=== PATIENT | female | born 1960 | race Caucasian/White ===

== ENCOUNTER 2023-06-09 07:36 | Outpatient (RCR) | payer BC, SELFPAY ==
[2023-05-26 08:00] VITALS: BP 106/53
[2023-05-26] MEDS: TORADOL 0.666699999999999959 MG IV (08:16)
[2023-05-26] MEDS: NSS 500 IV (08:16)
[2023-05-26] MEDS: ZOFRAN 2 MG IV (08:17)
[2023-05-26] MEDS: DEPACON 60 MG IV (08:47)
[2023-05-26] MEDS: DHE-45 1 MG IV (10:29)
[2023-05-26] MEDS: SOLU-MEDROL 258 MG IV (11:11)
[2023-05-26 13:21] VITALS: BP 128/75
[2023-06-09 07:50] VITALS: BP 135/80
[2023-06-09] MEDS: [UNRECOGNIZED DRUG - OTHER] 101 MG IV (08:00)
== END 2023-06-21 23:59 | disposition home or self-care (01) ==
LOC: OID 07:36
PROVIDERS: ATTENDING PHYSICIAN Psychiatry & Neurology Neurology; FAMILY PHYSICIAN Student in an Organized Health Care Education/Training Program
DX: G43.911 Migraine, unspecified, intractable, with status migrainosus (principal)
CPT/HCPCS: 96360; 96361; 96365; 96366; 96367; 96374; 96375; J3032

== ENCOUNTER → 2023-07-25 07:45 | Outpatient (REF) | payer BC, SELFPAY | LOC: MRI 07:45 | PROVIDERS: ATTENDING PHYSICIAN Psychiatry & Neurology Neurology; FAMILY PHYSICIAN Student in an Organized Health Care Education/Training Program | DX: R90.89 Other abnormal findings on diagnostic imaging of central nervous system (principal) | CPT/HCPCS: 70553; A9575 ==

== ENCOUNTER → 2023-07-30 13:55 | Outpatient (REF) | payer BC, SELFPAY | LOC: HWWDC 13:55 | PROVIDERS: ATTENDING PHYSICIAN Student in an Organized Health Care Education/Training Program | DX: Z12.31 Encounter for screening mammogram for malignant neoplasm of breast (principal) | CPT/HCPCS: 77063; 77067 ==

== ENCOUNTER → 2023-08-25 11:28 | Outpatient (REF) | payer BC, SELFPAY ==
[2023-09-04 08:45] LABS: HPV, High Risk Not Detected; HPV, High Risk Source Cervical
== END ==
LOC: CPAP 11:28
PROVIDERS: ATTENDING PHYSICIAN Advanced Practice Midwife
DX: Z01.419 Encounter for gynecological examination (general) (routine) without abnormal findings (principal); Z12.4 Encounter for screening for malignant neoplasm of cervix; Z11.51 Encounter for screening for human papillomavirus (HPV)
CPT/HCPCS: 87624; G0123

== ENCOUNTER → 2023-09-02 | Outpatient (REF) | payer BC, SELFPAY | LOC: DHSLP | PROVIDERS: ATTENDING PHYSICIAN Psychiatry & Neurology Neurology; FAMILY PHYSICIAN Student in an Organized Health Care Education/Training Program | DX: G47.19 Other hypersomnia (principal); R06.83 Snoring | CPT/HCPCS: 95800 ==

== ENCOUNTER → 2023-10-05 13:45 | Outpatient (REF) | payer BC, SELFPAY ==
[2023-10-06 14:05] LABS: Urine Albumin Negative (Neg - Trace); Urine Bilirubin Negative (Negative); Urine Character Clear (Clear); Urine Color Yellow; Urine Glucose Negative (Negative); Urine Ketone Negative (Negative); Urine Leukocyte Negative (Negative); Urine Nitrite Negative (Negative); Urine Occult Blood Negative (Negative); Urine Urobilinogen Negative (Neg - 1+)
== END ==
LOC: CLAB 13:45
PROVIDERS: ATTENDING PHYSICIAN Obstetrics & Gynecology
DX: N39.0 Urinary tract infection, site not specified (principal)
CPT/HCPCS: 81003; 87086

== ENCOUNTER → 2024-03-09 09:16 | Outpatient (REF) | payer BC, SELFPAY ==
[2024-03-09 10:11] LABS: % Basophils 0.4 % (0-2); % Eosinophils 4.6 % (0-6); % Immature Granulocytes 0.2 % (0-0.5); % Lymphocytes 46.5 % (20.5-51.1); % Monocytes 10.2 % (1.7-9.3); % Neutrophils 38.1 % (42.2-75.2); Absolute Eosinophils 0.2 10^3/uL (0-0.7); Absolute Lymphocytes 2.2 10^3/uL (1.2-3.4); Absolute Monocytes 0.5 10^3/uL (0.1-0.6); Absolute Neutrophils 1.8 10^3/uL (1.4-6.5); Hematocrit 37.2 % (37.0-47.0); Hemoglobin 12.3 g/dL (12.0-16.0); Mean Corp Hgb Conc. 33.1 g/dL (33.0-37.0); Mean Corpuscular Hgb 28.5 pg (27.0-31.0); Mean Corpuscular Volume 86.1 fL (81.0-99.0); Mean Platelet Volume 9.5 fL (7.4-10.4); Nucleated Red Blood Cells % 0 %; Platelet Count 269 10^3/uL (130-400); Red Blood Cell Count 4.32 10^6/uL (4.20-5.40); Red Cell Dist. Width 12.1 % (11.5-14.5); White Blood Cell Count 4.8 10^3/uL (4.8-10.8)
[2024-03-09 10:55] LABS: Glycohemoglobin (HgbA1c) 5.5 % (4.0-5.6)
[2024-03-09 11:20] LABS: ALT (SGPT) 23 U/L (0-35); AST (SGOT) 31 U/L (14-36); Alkaline Phosphatase 80 U/L (38-126); Blood Urea Nitrogen 18 mg/dl (7-17); Calcium 9.6 mg/dl (8.4-10.2); Carbon Dioxide 28 mmol/L (22-30); Chloride 102 mmol/L (98-107); Glucose 91 mg/dl (70-99); HDL Cholesterol 70 mg/dl; LDL Cholesterol, Calculated 128 mg/dl; Potassium 4.1 mmol/L (3.5-5.1); Sodium 139 mmol/L (135-145); Total Bilirubin 0.6 mg/dl (0.2-1.3); Total Cholesterol 209 mg/dl (50-199); Total Protein 6.1 g/dl (6.3-8.2); Triglyceride 55 mg/dl (10-149); Very Low Density Lipoprotein 11 mg/dl (0-30); eGFR > 60.00
[2024-03-09 11:30] LABS: C-Reactive Protein < 5.00 mg/L (0.0-10.00); Erythrocyte Sed Rate 13 mm/hour (0-20)
[2024-03-09 11:36] LABS: Vitamin D, 25-OH*** 36.5 ng/mL (30-80)
[2024-03-09 11:50] LABS: TSH Reflex To Free T4 1.78 uIU/ml (0.47-4.68)
[2024-03-09 12:05] LABS: Ferritin 20.5 ng/ml (11.1-264.0)
[2024-03-09 12:36] LABS: Folate 16.8 ng/ml (2.76-20); Vitamin B12 433 pg/ml (239-931)
[2024-03-10 15:39] LABS: Lyme Antibody Screen, EIA Negative (Negative)
[2024-03-11 05:35] LABS: EBV-EA (D) Ab IgG <5.0 U/mL (0.0-10.9); EBV-VCA IgM Antibodies <10.0 U/mL (0.0-43.9)
== END ==
LOC: REG 09:16
PROVIDERS: ATTENDING PHYSICIAN Family Medicine
DX: U09.9 Post COVID-19 condition, unspecified (principal); R73.03 Prediabetes; R53.83 Other fatigue
CPT/HCPCS: 36415; 80053; 80061; 82306; 82607; 82728; 82746; 83036; 84443; 85025; 85652; 86140; 86618; 86663; 86664; 86665

== ENCOUNTER → 2024-04-11 13:22 | Outpatient (REF) | payer BC, SELFPAY | LOC: REG 13:22 | PROVIDERS: ATTENDING PHYSICIAN Family Medicine; FAMILY PHYSICIAN Student in an Organized Health Care Education/Training Program | DX: I95.1 Orthostatic hypotension (principal); U09.9 Post COVID-19 condition, unspecified; Z86.16 Personal history of COVID-19 | CPT/HCPCS: 36415 ==

== ENCOUNTER → 2024-04-18 15:49 | Outpatient (REF) | payer BC, SELFPAY | LOC: HWRCS 15:49 | PROVIDERS: ATTENDING PHYSICIAN Student in an Organized Health Care Education/Training Program | DX: I95.1 Orthostatic hypotension (principal) | CPT/HCPCS: 93306 ==

== ENCOUNTER → 2024-04-20 09:27 | Outpatient (REF) | payer BC, SELFPAY | LOC: RCS 09:27 | PROVIDERS: ATTENDING PHYSICIAN Student in an Organized Health Care Education/Training Program | DX: I95.1 Orthostatic hypotension (principal) | CPT/HCPCS: 93225; 93226 ==

== ENCOUNTER → 2024-04-27 09:53 | Outpatient (REF) | payer BC, SELFPAY ==
[2024-04-27 12:14] LABS: Creatine Phosphokinase 54 U/L (30-135)
[2024-04-27 12:43] LABS: Cortisol, Random 7.1 ug/dl
[2024-04-27 21:24] LABS: Hepatitis C Antibody Negative (Negative)
[2024-04-27 23:26] LABS: IgA 93 mg/dl (70-400); IgG 732 mg/dl (700-1600); IgM 94 mg/dl (40-230)
[2024-04-28 21:09] LABS: Adrenocorticotropic Hormone 19.2 pg/mL (7.2-63.3)
[2024-04-29 00:57] LABS: Arsenic, Blood <10.0 ug/L (<=12.0); Lead - Venous <2.0 ug/dL (<=4.9); Mercury, Blood 3.3 ug/L (<=10.0)
[2024-04-29 00:59] LABS: Homocysteine 10 umol/L (0-15)
[2024-04-29 03:09] LABS: CMV IgM Antibody 11.7 AU/mL (<=29.9)
[2024-04-29 18:38] LABS: Anaplasma phagocytophilum IgG <1:80 (<1:80); Anaplasma phagocytophilum IgM < 1:16 (< 1:16)
[2024-04-29 18:41] LABS: Babesia microti IgG < 1:16 (< 1:16); Babesia microti IgM <1:20 (<1:20)
[2024-04-29 20:07] LABS: Ehrlichia chaffeensis IgG Ab <1:64 (<1:64); Ehrlichia chaffeensis IgM Ab < 1:16 (< 1:16)
[2024-04-30 06:21] LABS: Parvo B19 Ab, IgM 0.16 IV (<=0.89); Parvo Virus B19 Ab, IgG 0.14 IV (<=0.90)
[2024-04-30 06:50] LABS: Bartonella henselae IgG <1:64; Bartonella henselae IgM < 1:16
[2024-04-30 09:36] LABS: Albumin 3.85 g/dL (3.75-5.01); Alpha 1 Globulin 0.24 g/dL (0.19-0.46); Alpha 2 Globulin 0.68 g/dL (0.48-1.05); SPEP IFE Reflex Not Done; Total Protein-Electrophoresis 6.1 g/dL (6.3-8.2)
== END ==
LOC: REG 09:53
PROVIDERS: ATTENDING PHYSICIAN Family Medicine
DX: R53.82 Chronic fatigue, unspecified (principal); M79.10 Myalgia, unspecified site; R42 Dizziness and giddiness; M25.50 Pain in unspecified joint
CPT/HCPCS: 36415; 82024; 82175; 82533; 82550; 82784; 83090; 83655; 83825; 84155; 84165; 84207; 86041; 86611; 86644; 86645; 86666; 86747; 86753; 86803

== ENCOUNTER → 2024-05-26 14:15 | Outpatient (REF) | payer BC, SELFPAY | LOC: RCS 14:15 | PROVIDERS: ATTENDING PHYSICIAN Internal Medicine Cardiovascular Disease; FAMILY PHYSICIAN Student in an Organized Health Care Education/Training Program; REFERRING PHYSICIAN Family Medicine | DX: R07.89 Other chest pain (principal); R06.09 Other forms of dyspnea; R00.2 Palpitations | CPT/HCPCS: 93017; 93350 ==